=== PATIENT | male | born 1980 | race Caucasian/White ===

== ENCOUNTER 2017-12-13 21:02 | Emergency (ER) | payer MEDICAID, SELFPAY | END 2017-12-13 23:50 | disposition home or self-care (01) | LOC: M ED 21:02 | DX: S62.306A Unspecified fracture of fifth metacarpal bone, right hand, initial encounter for closed fracture (principal); Y04.0XXA Assault by unarmed brawl or fight, initial encounter; Y92.410 Unspecified street and highway as the place of occurrence of the external cause | CPT/HCPCS: 73130 ==

== ENCOUNTER → 2017-12-29 | Outpatient (CLI) | payer MEDICAID | LOC: M RAD 15:36 | DX: S62.316A Displaced fracture of base of fifth metacarpal bone, right hand, initial encounter for closed fracture (principal); X58.XXXA Exposure to other specified factors, initial encounter; Y92.89 Other specified places as the place of occurrence of the external cause; Y99.9 Unspecified external cause status; Y93.9 Activity, unspecified | CPT/HCPCS: 76882 ==

== ENCOUNTER → 2018-01-11 | Outpatient (CLI) | payer MEDICAID ==
[~2018-01-11] MED LIST: PROHANCE 279.3MG/ML 15ML VIAL (A9576) As Ordered; PROHANCE 279.3MG/ML 5ML VIAL (A9576) As Ordered
== END ==
LOC: M RAD 15:38
DX: R22.31 Localized swelling, mass and lump, right upper limb (principal)
CPT/HCPCS: A9576

== ENCOUNTER 2018-07-02 01:26 | Emergency (ER) | payer MEDICAID | END 2018-07-02 02:37 | disposition left against medical advice (07) | LOC: M ED 01:26 | DX: Z53.29 Procedure and treatment not carried out because of patient's decision for other reasons (principal) ==

== ENCOUNTER → 2019-07-19 | Outpatient (CLI) | payer OTHER ==
[~2019-07-19] MED LIST changes: -PROHANCE 279.3MG/ML 15ML VIAL (A9576) As Ordered; -PROHANCE 279.3MG/ML 5ML VIAL (A9576) As Ordered; +TRAM50TA2 PO
--- NOTE | 2019-07-19 19:50 | REP ---
HISTORY: Pain. No history of trauma. Three limited views of the cervical spine show disc space narrowing at C3-4. The remainder of the disc spaces are relatively symmetric and well maintained. Anterior and posterior osteophytic ridging is seen at C3-4. The facet joints appear to be well aligned bilaterally. Vertebral body height and alignment is within normal limits. IMPRESSION: Limited examination showing chronic changes as described above. Electronically Signed by Rodrigo Harley DO 07/20/2019 09:59 A
== END ==
LOC: M WUC 18:58
PROVIDERS: ATTEND Nurse Practitioner Family
DX: R51 Headache (principal); M50.31 Other cervical disc degeneration, high cervical region

== ENCOUNTER 2021-10-30 23:47 | Emergency (ER) | payer OTHER ==
[~2021-10-30] VITALS: Ht 172.7 cm; Wt 75.4 kg
[2021-10-30 23:47] VITALS: BP 134/74
[2021-10-30] MEDS ORDERED: IBUP80TA PO (23:57)
== END 2021-10-31 07:10 | disposition left against medical advice (07) ==
LOC: M ED 23:47
DX: Z53.21 Procedure and treatment not carried out due to patient leaving prior to being seen by health care provider (principal)

== ENCOUNTER → 2022-03-23 | Outpatient (REF) | payer OTHER ==
[~2022-03-23] MED LIST changes: +IBUP80TA PO
== END ==
LOC: M LAB REF 19:59
PROVIDERS: ATTEND Physician Assistant Medical
DX: R19.4 Change in bowel habit (principal)

== ENCOUNTER → 2022-03-26 | Outpatient (CLI) | payer OTHER | LOC: M LABSMTC 09:26 | PROVIDERS: ATTEND Anesthesiology | DX: Z01.818 Encounter for other preprocedural examination (principal); Z11.52 Encounter for screening for COVID-19 ==

== ENCOUNTER → 2022-04-23 | Outpatient (CLI) | payer OTHER | LOC: M LABSMTC 09:53 | PROVIDERS: ATTEND Anesthesiology | DX: Z01.812 Encounter for preprocedural laboratory examination (principal); Z20.822 Contact with and (suspected) exposure to COVID-19 ==

== ENCOUNTER 2022-04-28 08:52 | Day surgery (SDC) | payer OTHER ==
[~2022-04-28] VITALS: Ht 172.7 cm; Wt 72.3 kg
[~2022-04-28 08:52] MED LIST changes: +LIDOCAINE 2% 100MG/5ML SDV (FOR ANES.) As Ordered ONE; +NS 1,000 ML IV ONE; +propofoL 200 MG/20 ML VIAL As Ordered ONE
[2022-04-28 10:35] VITALS: BP 126/79
== END 2022-04-28 10:50 | disposition home or self-care (01) ==
LOC: M OPP 08:52
PROVIDERS: ATTEND Internal Medicine Gastroenterology
DX: K63.5 Polyp of colon (principal); K64.8 Other hemorrhoids; R19.4 Change in bowel habit; R12 Heartburn

== ENCOUNTER → 2022-11-17 | Outpatient (CLI) | payer OTHER ==
[~2022-11-17] MED LIST changes: -LIDOCAINE 2% 100MG/5ML SDV (FOR ANES.) As Ordered ONE; -NS 1,000 ML IV ONE; +PROHANCE 279.3MG/ML 15ML VIAL ONE; -propofoL 200 MG/20 ML VIAL As Ordered ONE
== END ==
LOC: M PLAIMG 08:34
PROVIDERS: ATTEND Internal Medicine Gastroenterology
DX: R19.7 Diarrhea, unspecified (principal)
CPT/HCPCS: 74183; A9576

== ENCOUNTER → 2023-01-01 | Outpatient (CLI) | payer OTHER | LOC: M PLAIMG 08:12 | PROVIDERS: ATTEND Family Medicine | DX: R51.9 Headache, unspecified (principal); H53.9 Unspecified visual disturbance | CPT/HCPCS: 70553; A9576 ==